=== PATIENT | female | born 1980 | race Caucasian/White ===

== ENCOUNTER 2021-02-06 14:03 | Emergency (ER) | payer SELFPAY ==
[2021-02-06 14:20] LABS: Bilirubin Negative (Negative); Blood, Urine Trace (Negative); Clarity Slightly Cloudy (Clear); Glucose, Urine (Dipstick) Negative (Negative); Ketone, Urine Negative (Negative); Leukocyte Large (Negative); Nitrite Negative (Negative); Protein, Urine (Dipstick) Trace mg/dL (Neg-Trace); Urobilinogen 0.2 mg/dL (Less than 2)
[2021-02-06 14:54] LABS: Pregnancy Test - Urine (BHCG) Negative (Negative)
[2021-02-06 14:55] LABS: Pregu Control Background? CLEAR/WHITE (CLR/WHITE); Pregu Control Bar Appear? YES (CONTROL BAR)
[2021-02-06 14:59] LABS: WBC/HPF Greater than 50 HPF (0-3)
[2021-02-06 15:00] LABS: Bacteria/HPF Rare-Few HPF (None Seen)
[2021-02-06 15:02] LABS: Other Microscopic Description RARE-FEW CLUE CELLS
== END 2021-02-06 14:54 | disposition home or self-care (01) ==
LOC: BURERS 14:03
DX: N39.0 Urinary tract infection, site not specified (principal); I10 Essential (primary) hypertension; F17.210 Nicotine dependence, cigarettes, uncomplicated; Z79.899 Other long term (current) drug therapy
CPT/HCPCS: 81003; 81015; 81025; 87077; 87086; 99284